=== PATIENT | female | born 1975 | race Caucasian/White ===

== ENCOUNTER 2017-05-17 14:21 | Inpatient (IN) | payer OTHER ==
[~2017-05-17] VITALS: Ht 149.9 cm; Wt 61.7 kg
[2017-05-17 14:53] VITALS: BP 104/69
[2017-05-17] MEDS ORDERED: PREN1TAB89 PO (14:54)
[2017-05-17] MEDS ORDERED: OXYTOCIN 30 UNITS/LACT RINGERS 500 ML IV ONE (15:43)
[2017-05-17] MEDS ORDERED: RINGERS SOLUTION,LACTATED 1,000 ML IV PRN (15:43)
[2017-05-17] MEDS ORDERED: METHYLERGONOVINE MALEATE 0.2 MG/ML VIAL IM PRN (15:45)
[2017-05-17] MEDS ORDERED: AMPICILLIN SODIUM 2 GM/NS 100 ML IV ONE (15:45)
[2017-05-17] MEDS ORDERED: LIDOCAINE HCL/PF 1% 30 ML VIAL INJ PRN (15:45)
[2017-05-17] MEDS ORDERED: CITRIC ACID/SODIUM CITRATE 30 ML SOLUTION UDCUP PO PRN (15:45)
[2017-05-17] MEDS ORDERED: METOCLOPRAMIDE HCL 5 MG/ML 2 ML VIAL IVP PRN (15:45)
[2017-05-17] MEDS: RINGERS SOLUTION,LACTATED 1,000 ML IV SCH ×2 (16:11→17:42)
[2017-05-17 16:17] LABS: BASOPHILS % (AUTO) 0.6 % (0.0-2.0); EOSINOPHILS % (AUTO) 0.1 % (1.0-6.0); HEMATOCRIT 36.5 % (36-46); HEMOGLOBIN 12.6 g/dL (12.0-16.0); LYMPHOCYTES # (AUTO) 1.4 K/uL (1.0-4.8); LYMPHOCYTES % (AUTO) 9.4 % (22.0-44.0); MEAN CORPUSCULAR HEMOGLOBIN 29.8 pg (26.0-34.0); MEAN CORPUSCULAR HGB CONC 34.5 G/dL (31.0-37.0); MEAN CORPUSCULAR VOLUME 86 fL (80-100); MONOCYTES % (AUTO) 6.4 % (2.0-9.0); NEUTROPHILS # (AUTO) 12.6 K/uL (1.8-7.7); NEUTROPHILS % (AUTO) 83.5 % (40.0-70.0); PLATELET COUNT (AUTO)-OB 306 K/uL (150-450); RED BLOOD CELL COUNT(AUTO) 4.23 MIL/uL (4.00-5.20); RED CELL DISTRIBUTION WIDTH 13.2 % (11.5-14.5)
[2017-05-17] MEDS ORDERED: ROPIVACAINE HCL 0.2% 100 ML ED ONE (17:21)
[2017-05-17] MEDS ORDERED: AMPICILLIN SODIUM 1 GM/NS 50 ML IV SCH (20:00)
[2017-05-17] MEDS ORDERED: OXYGEN THERAPY IH SCH (20:00)
[2017-05-17] MEDS ORDERED: OXYTOCIN 30 UNITS/LACT RINGERS 500 ML IV PRN (20:01)
[2017-05-17] MEDS ORDERED: FentaNYL CITRATE-PF 100 MCG/2 ML VIAL IVP PRN (23:00)
[2017-05-17] MEDS ORDERED: RINGERS SOLUTION,LACTATED 1,000 ML IV ONE (23:10)
[2017-05-17] MEDS ORDERED: LANOLIN 7 GM OINTMENT TP PRN (23:15)
[2017-05-17] MEDS ORDERED: MEASLES/MUMPS/RUBELLA VACCINE, LIVE 0.5 ML/VIAL SQ ONE (23:15)
[2017-05-17] MEDS ORDERED: OxyCODONE HCL/ACETAMINOPHEN 5-325 MG TABLET PO PRN ×2 (23:15)
[2017-05-17] MEDS ORDERED: GLYCERIN/WITCH HAZEL LEAF 40 PADS JAR TP PRN (23:15)
[2017-05-17] MEDS ORDERED: BENZOCAINE 20%/MENTHOL 56 GM SPRAY CANISTER TP PRN (23:15)
[2017-05-18] MEDS: IBUPROFEN 600 MG TABLET PO PRN ×2 (05:04→16:37)
[2017-05-18] MEDS: MAGNESIUM HYDROXIDE SUSPENSION 30 ML UDCUP PO SCH ×2 (09:04→21:24)
[2017-05-18] MEDS ORDERED: IBUP-2070 PO (13:39)
[2017-05-18] MEDS ORDERED: DSS100 PO (13:41)
== END 2017-05-19 09:10 | disposition home or self-care (01) | DRG 775 ==
LOC: OBSVTOIN 14:21 → 4S 14:21
PROVIDERS: ADMIT Obstetrics & Gynecology; ATTEND Obstetrics & Gynecology
PROC: 4A1HXCZ Monitoring of Products of Conception, Cardiac Rate, External Approach (ICD-10-PCS; 2017-05-17)
PROC: 10E0XZZ Delivery of Products of Conception, External Approach (ICD-10-PCS; principal; 2017-05-18)
PROC: 0KQM0ZZ Repair Perineum Muscle, Open Approach (ICD-10-PCS; 2017-05-18)
PROC: 3E0R3BZ Introduction of Anesthetic Agent into Spinal Canal, Percutaneous Approach (ICD-10-PCS; 2017-05-18)
PROC: 00HU33Z Insertion of Infusion Device into Spinal Canal, Percutaneous Approach (ICD-10-PCS; 2017-05-18)
PROC: 3E0234Z Introduction of Serum, Toxoid and Vaccine into Muscle, Percutaneous Approach (ICD-10-PCS; 2017-05-18)
DX: O63.1 Prolonged second stage (of labor) (principal); O09.513 Supervision of elderly primigravida, third trimester; O77.0 Labor and delivery complicated by meconium in amniotic fluid; O70.1 Second degree perineal laceration during delivery; Z37.0 Single live birth; Z3A.37 37 weeks gestation of pregnancy; Z23 Encounter for immunization
CPT/HCPCS: 86850; 86900; 86901; J0290; J2590; J2795; J7120